=== PATIENT | female | born 1975 | race Caucasian/White ===

== ENCOUNTER → 2017-06-08 | Outpatient (CLI) | payer OTHER ==
--- NOTE | 2017-06-08 13:37 | Diagnostic Imaging Report ---
TECHNIQUE: Multiple real-time grayscale images were obtained over the right upper quadrant in various projections. INDICATION: Abdominal pain. FINDINGS: The liver is normal in size and without focal lesions. There is no biliary ductal dilatation. Common bile duct measures 3.1 mm. There is no cholelithiasis, gallbladder wall thickening, or pericholecystic fluid. There is some questionable fatty infiltration of the pancreas. The right kidney is normal. There is no ascites. IMPRESSION: Unremarkable right upper quadrant ultrasound apart from some questionable fatty infiltration of the pancreas. Dictated by: Dictated on workstation # [id number]
== END ==
LOC: RAD 12:14
PROVIDERS: ATTEND Nurse Practitioner Family
DX: R10.11 Right upper quadrant pain (principal)
CPT/HCPCS: 76705

== ENCOUNTER → 2018-06-11 | Day surgery (SDC) | payer OTHER ==
[~2018-06-11] MED LIST: LIDOCAINE PF 2% 5 ML (XYLOCAINE) VIAL ONE
--- OUTSIDE RECORDS SUMMARY | 2018-06-11 07:46 | XMS REPORT | Continuity of Care Document ---
Author Author [facility] Organization [facility] Address Unknown Phone Unavailable Allergies There is no data. Medications There is no data. Problems Date Dx Coded Attending Type Code Diagnosis Diagnosed By 01/02/2017 Ot 785.1 PALPITATIONS 01/02/2017 Ot 785.1 PALPITATIONS 01/08/2017 Ot 785.1 PALPITATIONS 06/25/2017 JOSÉ ANTONIO HEALY Ot R10.11 RIGHT UPPER QUADRANT PAIN Procedures There is no data. Results There is no data. Encounters ACCT No. Visit Date/Time Discharge Status Pt. Type Provider Facility Loc./Unit Complaint [id number] 05/06/2017 16:43:02 05/06/2017 23:59:59 [facility] Outpatient [facility] [id number] 04/08/2017 16:52:54 04/08/2017 23:59:59 [facility] Outpatient [facility] [id number] 01/15/2017 15:08:45 01/15/2017 23:59:59 [facility] Outpatient [facility] [id number] 12/22/2016 15:01:55 12/22/2016 23:59:59 [facility] Outpatient [facility] [id number] 12/09/2016 17:48:45 12/09/2016 23:59:59 [facility] Outpatient [facility] [id number] 08/26/2016 15:56:50 08/26/2016 23:59:59 [facility] Outpatient [facility] [id number] 08/07/2016 17:04:21 08/07/2016 23:59:59 [facility] Outpatient Tika Alvarez [id number] 11/20/2014 09:44:16 11/20/2014 23:59:59 [facility] Outpatient Tika Alvarez [id number] 10/24/2013 18:17:14 10/24/2013 23:59:59 [facility] Outpatient Tika Alvarez [id number] 06/08/2017 12:14:00 06/08/2017 23:59:59 [facility] Outpatient JOSÉ ANTONIO HEALY Via [facility] RAD RT ABD PAIN [id number] 02/09/2012 11:12:00 Document Registration
[2018-06-11 08:45] VITALS: BP 115/85
--- NOTE | 2018-06-11 09:08 | Anesthesia-Procedure Note ---
Procedures/Interventions Procedure Start/Stop/Diagnosis Date of Procedure: Jun 11, 2018 Start Time: 08:25 Referring Physician: Dr Corado Preprocedural Diagnosis: Neck Pain, Left-sided numbness/tingling, R/O Multiple Sclerosis Brief History Anesthesia Note ([id number]) Pt sent here for Dx Lumbar Puncture by Dr Corado. She has been having neck pain and left sided numbness/tingling for the past 3-4 weeks per patient. Recent MRI of head done showing one lesion possibly concerning for MS, but showed no contraindication for LP. Plt Count WNL. +/- Lumbar Puncture discussed with patient and consent signed. Stop Time: 08:50 Postprocedural Diagnosis: Same Lumbar Puncture Discussed Risk,Benefits: Yes Patient Consents: Yes Position: L3-4, Right Sterile Technique: Yes (ChloraPrep) Opening Pressure: 16 cm CSF Fluid Color: Clear Spinal Needle Used: Other (25 G Pencan) Procedure Notes See above for LP details. + CSF on [place]. Neg heme/paresthesias. Opening pressure WNL and CSF dripped back slowly due to small needle gauge. Pt tolerated the procedure well. Discussed the possibility and symptoms of a PDPH, including increased fluids and caffeine. She is to follow up with Dr Corado and already has an appointment with an MS specialist in [place]. We will be available if needed. RADHA DELUCA DO Jun 11, 2018 09:08
[2018-06-11 09:38] LABS: APPEARANCE,CSF CLEAR; COLOR,CSF COLORLESS; CSF TUBE NUMBER 4; RED BLOOD CELL,CSF 0 CELLS (0-0); WHITE BLOOD CELL,CSF 3 CELLS (0-5)
[2018-06-11 09:46] LABS: CSF GLUCOSE 54 MG/DL (50-80); CSF TOTAL PROTEIN 32 MG/DL (15-40)
== END | disposition home or self-care (01) ==
LOC: SDC 07:42
PROVIDERS: ATTEND Internal Medicine
DX: G95.9 Disease of spinal cord, unspecified (principal); G35 Multiple sclerosis
CPT/HCPCS: 36415; 82784; 82945; 83873; 83916; 84157; 89051